=== PATIENT | male | born 1980 | race Caucasian/White ===

== ENCOUNTER 2018-11-26 05:43 | Emergency (ER) | payer MEDICAID ==
[2018-11-26] MEDS ORDERED: 0.9 % SODIUM CHLORIDE 1,000 ML BAG IV ONE (06:12)
[2018-11-26] MEDS ORDERED: ONDANSETRON HCL IV 4 MG/2 ML VIAL IV ONE (06:12)
--- NOTE | 2018-11-26 06:17 | Emergency Department Record ---
History of Present Illness - General Chief complaint: Nausea, Vomiting, Diarrhea Stated complaint: NAUSEA/VOMITING Time Seen by Provider: 11/26/18 06:07 Source: Patient, RN notes reviewed Mode of Arrival: Ambulatory - History of Present Illness Initial comments: 4 days of nausea and vomiting and diarrhea for 4 days and PMH asthma ,anxiety and GERD and primary is Dr. roa in [place]. patient ran out lorazepam 2 days ago. MD complaint: Diarrhea, Nausea, Vomiting Onset/Timin -: Days(s) Description of Vomiting: Watery Associated Abdominal Pain: Yes Location: LLQ, RLQ Severity: Moderate Severity scale (1-10): 4 Quality: Aching, Cramping Consistency: Intermittent Improves with: Vomiting Worsens with: Eating - Related Data Home Medications Medication Instructions Recorded Confirmed Last Taken Escitalopram Oxalate [Lexapro] 10 mg PO DAILY 11/26/18 11/26/18 Unknown Lorazepam [Ativan] 0.5 mg PO BID PRN 11/26/18 11/26/18 Unknown Allergies Allergy/AdvReac Type Severity Reaction Status Date / Time morphine AdvReac BEHAVIORAL Verified 11/06/15 14:04 CHANGES Travel Screening - Travel/Exposure Within Last 30 Days Have you traveled within the last 30 days?: No - Travel/Exposure Within Last Year Have you traveled outside the [place] in the last year?: No - Additonal Travel Details Have you been exposed to anyone with a communicable illness?: No - Travel Symptoms Symptom Screening: None Review of Systems Reviewed: No additional complaints except as noted below Constitutional: Reports: As per HPI. Denies: Chills, Fever, Malaise, Night sweats, Weakness, Weight change Eyes: Reports: As per HPI. Denies: Eye discharge, Eye pain, Photophobia, Vision change ENT: Reports: As per HPI. Denies: Congestion, Dental pain, Ear pain, Epistaxis, Hearing loss, Throat pain Respiratory: Reports: As per HPI. Denies: Cough, Dyspnea, Hemoptysis, Stridor, Wheezes Cardiovascular: Reports: As per HPI. Denies: Arrhythmia, Chest pain, Dyspnea on exertion, Edema, Murmurs, Orthopnea, Palpitations, Paroxysmal nocturnal dyspnea, Rheumatic Fever, Syncope Endocrine: Reports: As per HPI. Denies: Fatigue, Heat or cold intolerance, Polydipsia, Polyuria Gastrointestinal: Reports: As per HPI, Nausea, Vomiting. Denies: Abdominal pain, Constipation, Diarrhea, Hematemesis, Hematochezia, Melena Genitourinary: Reports: As per HPI. Denies: Dysuria, Frequency, Hematuria, I ncontinence, Retention, Testicular pain, Testicular mass, Urgency Musculoskeletal: Reports: As per HPI. Denies: Arthralgia, Back pain, Gout, Joint swelling, Myalgia, Neck pain Skin: Reports: As per HPI. Denies: Bruising, Change in color, Change in hair/nails, Lesions, Pruritus, Rash Neurological: Reports: As per HPI, Other (tinitus). Denies: Abnormal gait, Confusion, Headache, Numbness, Paresthesias, Seizure, Tingling, Tremors, Vertigo, Weakness Psychiatric: Reports: As per HPI. Denies: Anxiety, Auditory hallucinations, Depression, Homicidal thoughts, Suicidal thoughts, Visual hallucinations Hematological/Lymphatic: Reports: As per HPI. Denies: Anemia, Blood Clots, Easy bleeding, Easy bruising, Swollen glands Past Medical History - SOCIAL HISTORY Smoking Status: Former smoker Alcohol Use: Rare Drug Use: None - RESPIRATORY Hx Respiratory Disorders: Yes Hx Asthma: Yes - CARDIOVASCULAR Hx Cardio Disorders: No - NEURO Hx Neuro Disorders: No - GI Hx GI Disorders: No - Hx Genitourinary Disorders: No - ENDOCRINE Hx Endocrine Disorders: No - MUSCULOSKELETAL Hx Musculoskeletal Disorders: No - PSYCH Hx Psych Problems: Yes Hx Anxiety: Yes Hx Depression: Yes - HEMATOLOGY/ONCOLOGY Hx Hematology/Oncology Disorders: No Family Medical History Any Significant Family History?: No Physical Exam - General General Appearance: Alert, Oriented x3, Cooperative, No acute distress - Head Head exam: Normal inspection - Eye Eye exam: Normal appearance, PERRL Pupils: Normal accommodation - ENT ENT exam: Normal exam, Mucous membranes moist, Normal external ear exam, Normal orophraynx, TM's normal bilaterally Ear exam: Normal external inspection. negative: External canal tenderness Nasal Exam: Normal inspection. negative: Discharge, Sinus tenderness Mouth exam: Normal external inspection, Tongue normal Teeth exam: Normal inspection. negative: Dental caries Throat exam: Normal inspection. negative: Tonsillar erythema, Tonsillar exudate - Neck Neck exam: Normal inspection, Full ROM. negative: Tenderness - Respiratory Respiratory exam: Normal lung sounds bilaterally. negative: Respiratory distress - Cardiovascular Cardiovascular Exam: Regular rate, Normal rhythm, Normal heart sounds - GI/Abdominal GI/Abdominal exam: Soft, Normal bowel sounds. negative: Tenderness - Rectal Rectal exam: Deferred - exam: Deferred - Extremities Extremities exam: Normal inspection, Full ROM, Normal capillary refill. negative: Tenderness - Back Back exam: Reports: Normal inspection, Full ROM. Denies: Muscle spasm, Rash noted, Tenderness - Neurological Neurological exam: Alert, Normal gait, Oriented X3, Reflexes normal - Psychiatric Psychiatric exam: Normal affect, Normal mood - Skin Skin exam: Dry, Intact, Normal color, Warm Course Vital Signs 11/26/18 05:48 Temperature 97.9 F Pulse Rate [ 125 H Pulse Ox Probe] Respiratory 28 H Rate Blood Pressure 155/103 [Left Arm] Pulse Ox 99 - Reevaluation(s) Reevaluation #1: patient is feeling better 11/26/18 07:06 Medical Decision Making - Data Complexity MDM Data: Labs Ordered and/or Reviewed (potassium 3.3), X-Ray Ordered and/or Reviewed (ct head negative) - Lab Data Result diagrams: 11/26/18 06:04 11/26/18 06:04 Disposition Clinical Impression: Anxiety, Hypokalemia, Viral syndrome Tinnitus Qualifiers: Laterality: unspecified laterality Qualified Code(s): H93.19 - Tinnitus, unspecified ear Vomiting Qualifiers: Vomiting type: unspecified Vomiting Intractability: non-intractable Nausea presence: with nausea Qualified Code(s): R11.2 - Nausea with vomiting, unspecified Disposition: Home, Self-Care Condition: (1) Good Instructions: Acute Nausea and Vomiting (ED) Additional Instructions: follow up with family DR in 3 days Forms: Patient Portal Access Time of Disposition: 07:02 Quality - Quality Measures Quality Measures: N/A - Blood Pressure Screening Does Patient Have Any of the Following: No Blood Pressure Classification: Hypertensive Reading Systolic Measurement: 136 Diastolic Measurement: 95 Screening for High Blood Pressure: < Pre-Hypertensive BP, F/U Documented > [G8950] Pre-Hypertensive Follow-up Interventions: Referral to alternative/primary care provider.
[2018-11-26] MEDS ORDERED: LORAZEPAM 2 MG/ML VIAL IV ONE (06:18)
[2018-11-26 06:23] LABS: ABSOLUTE NEUTROPHIL COUNT 4.45; HEMATOCRIT 46.8 % (42.0-52.0); HEMOGLOBIN 16.1 gm/dl (14.0-18.0); MEAN CORPUSCULAR HEMOGLOBIN 32.3 pg (27-33); MEAN CORPUSCULAR HGB CONC 34.4 g/dl (32-36); MEAN PLATELET VOLUME 10.8 fl (7.4-10.4); PLATELET COUNT 228 K/uL (130-400); RED BLOOD COUNT 4.98 M/uL (4.40-5.70); WHITE BLOOD COUNT W/O DIFF 7.5 K/uL (4.2-12.2)
[2018-11-26 06:34] LABS: BLOOD UREA NITROGEN 9 mg/dL (6-20); CREATININE 0.9 mg/dL (0.7-1.2); EST GLOMERULAR FILTRATION RATE > 60 mL/min
[2018-11-26 06:35] LABS: LIPASE 41 U/L (13-60)
[2018-11-26 06:37] LABS: GLUCOSE,RANDOM 101 mg/dL (74-109)
[2018-11-26] MEDS ORDERED: POTASSIUM CHLORIDE 10 MEQ TAB PO ONE (06:43)
--- NOTE | 2018-11-29 19:59 | CT SCAN REPORT ---
EXAM: CT SCAN HEAD WO CONTRAST HISTORY: RINGING IN BOTH EARS FOR FOUR DAYS. TECHNIQUE: Axial CT scan of the head performed without IV contrast. COMPARISON: None. FINDINGS: No definite intracranial hemorrhage identified. No focal mass effect or midline shift evident. Mild generalized atrophy. No definite acute infarct or intracranial mass lesion seen. No depressed calvarial fracture evident. IMPRESSION: EMERGENCY NONCONTRAST HEAD CT APPEARS ESSENTIALLY NEGATIVE NO DEFINITE ACUTE INTRACRANIAL HEMORRHAGE OR FOCAL MASS EFFECT IDENTIFIED. JOB NUMBER: [id number] MTDD
== END 2018-11-26 07:16 | disposition home or self-care (01) ==
LOC: ER 05:43
DX: E87.6 Hypokalemia (principal); B34.9 Viral infection, unspecified; H93.19 Tinnitus, unspecified ear; R11.2 Nausea with vomiting, unspecified; R19.7 Diarrhea, unspecified; R10.84 Generalized abdominal pain; Z87.891 Personal history of nicotine dependence
CPT/HCPCS: 99284 ×2; 96374; 96375; 83690; 80048; 85027; 70450; J2405; J2060; J7030

== ENCOUNTER 2018-12-12 13:34 | Emergency (ER) | payer MEDICAID ==
--- NOTE | 2018-12-12 14:00 | Emergency Department Record ---
History of Present Illness - General Chief complaint: Vomiting blood Stated complaint: vomiting blood,vertigo Time Seen by Provider: 12/12/18 13:47 Source: Patient, Family Mode of Arrival: Ambulatory Limitations: No limitations - History of Present Illness Initial comments: The patient is here due to not feeling well for 3 weeks. He had an abrupt onset of vertigo when a car alarm went off when he was working on a car under the [place]. It caused the acute onset of a spinning sensation and vertigo which he mainly has when he closes his eyes. The patient has been intermittently vomiting at times over the last 3 weeks and did have some blood streaking this AM but that has gone now. He denies any significant AP, any SOLOMON, CP, SOB or fevers. The patient was here in the ER for this issues 2 weeks ago and had a neg head CT. He also was recently seen at [facility] and states nothing was done. The patient has not seen his PCP for this as directed. MD complaint: Other Onset/Timin -: Week(s) Radiation: LUQ, RUQ, LLQ, RLQ, Other Severity scale (1-10): 10 Quality: Cramping Consistency: Constant Improves with: None Worsens with: None Context: Other Associated Symptoms: Nausea, Vomiting Treatments Prior to Arrival: None - Related Data Allergies Allergy/AdvReac Type Severity Reaction Status Date / Time morphine AdvReac BEHAVIORAL Verified 11/06/15 14:04 CHANGES Travel Screening - Travel/Exposure Within Last 30 Days Have you traveled within the last 30 days?: No Review of Systems Constitutional: Denies: Chills, Fever Eyes: Denies: Eye discharge ENT: Denies: Congestion Respiratory: Denies: Cough, Dyspnea Cardiovascular: Denies: Arrhythmia, Chest pain Past Medical History - SOCIAL HISTORY Smoking Status: Former smoker - RESPIRATORY Hx Respiratory Disorders: Yes Hx Asthma: Yes - CARDIOVASCULAR Hx Cardio Disorders: No - NEURO Hx Neuro Disorders: No - GI Hx GI Disorders: No - Hx Genitourinary Disorders: No - ENDOCRINE Hx Endocrine Disorders: No - MUSCULOSKELETAL Hx Musculoskeletal Disorders: No - PSYCH Hx Psych Problems: Yes Hx Anxiety: Yes Hx Depression: Yes - HEMATOLOGY/ONCOLOGY Hx Hematology/Oncology Disorders: No Family Medical History Any Significant Family History?: No Physical Exam - General General Appearance: Alert, Oriented x3, Cooperative, No acute distress - Head Head exam: Atraumatic, Normocephalic, Normal inspection - Eye Eye exam: Normal appearance, PERRL, EOMI, Nystagmus. negative: Conjunctival injection - ENT ENT exam: TM's normal bilaterally Throat exam: Normal inspection. negative: Tonsillar erythema, Tonsillar exudate - Neck Neck exam: Normal inspection, Full ROM. negative: Tenderness - Respiratory Respiratory exam: Normal lung sounds bilaterally. negative: Respiratory distress - Cardiovascular Cardiovascular Exam: Regular rate, Normal rhythm, Normal heart sounds - GI/Abdominal GI/Abdominal exam: Soft, Normal bowel sounds. negative: Tenderness - Extremities Extremities exam: Normal inspection, Full ROM, Normal capillary refill. negative: Tenderness - Back Back exam: Reports: Normal inspection - Neurological Neurological exam: Alert, Normal gait, Oriented X3. negative: Abnormal gait, Altered, Motor sensory deficit - Psychiatric Psychiatric exam: Anxious Course Vital Signs 12/12/18 13:41 Temperature 97.7 F Pulse Rate 133 H Respiratory 20 Rate Blood Pressure 119/101 Pulse Ox 95 - Reevaluation(s) Reevaluation #1: The patient is doing a lot better at this time. His dizziness, vertigo, nausea and vomiting have improved. Due to the extent of these issues and the fact he has been to the ER 3 times for it I did recommend transfer to a larger hospital for further treatment and the patient states he would like to go to [facility]. 12/12/18 14:47 Reevaluation #2: I did discuss the case with Dr. Faulkner at [facility] and she does accept the pa tient in transfer. 12/12/18 15:24 Medical Decision Making - Lab Data Result diagrams: 12/12/18 14:00 12/12/18 14:00 Disposition Disposition: Transfer Clinical Impression: Vomiting Qualifiers: Vomiting type: unspecified Vomiting Intractability: non-intractable Nausea presence: with nausea Qualified Code(s): R11.2 - Nausea with vomiting, unspecified Disposition: Acute Care Hospital Transfer Transfer To: [facility] Reason For Transfer: Neurology Accepting Physician: Kaushik Time Discussed w/Accepting Physician: 15:25 Condition: (2) Stable Forms: Patient Portal Access Time of Disposition: 15:25 Quality - Quality Measures Quality Measures: N/A - Blood Pressure Screening View Details: Yes Does Patient Have Any of the Following: No Blood Pressure Classification: Hypertensive Reading Systolic Measurement: 119 Diastolic Measurement: 101 Screening for High Blood Pressure: < First Hypertensive BP, F/U Documented > [G8950] First Hypertensive Follow-up Interventions: Referral to alternative/primary care provider.
[2018-12-12] MEDS: LORAZEPAM 2 MG/ML VIAL IV ONE ×2 (14:02→15:37)
[2018-12-12] MEDS: 0.9 % SODIUM CHLORIDE 1,000 ML BAG IV ONE (14:02)
[2018-12-12] MEDS: ONDANSETRON HCL IV 4 MG/2 ML VIAL IV ONE (14:02)
[2018-12-12 14:06] LABS: HEMATOCRIT 50.3 % (42.0-52.0); HEMOGLOBIN 17.3 gm/dl (14.0-18.0); MEAN CELL VOLUME 94.4 fl (81-97); MEAN CORPUSCULAR HEMOGLOBIN 32.5 pg (27-33); MEAN CORPUSCULAR HGB CONC 34.4 g/dl (32-36); MEAN PLATELET VOLUME 9.9 fl (7.4-10.4); PLATELET COUNT 291 K/uL (130-400); RED BLOOD COUNT 5.33 M/uL (4.40-5.70); RED CELL DISTRIBUTION WIDTH 14.6 % (11.5-14.5); WHITE BLOOD COUNT W/O DIFF 12.8 K/uL (4.2-12.2)
[2018-12-12 14:17] LABS: BLOOD UREA NITROGEN 10 mg/dL (6-20); CREATININE 1.1 mg/dL (0.7-1.2); EST GLOMERULAR FILTRATION RATE > 60 mL/min
[2018-12-12 14:18] LABS: TOTAL PROTEIN 8.1 g/dL (6.6-8.7)
[2018-12-12 14:19] LABS: GLUCOSE,RANDOM 125 mg/dL (74-109)
[2018-12-12 14:22] LABS: ALBUMIN 4.9 g/dL (4.0-5.0); ALKALINE PHOSPHATASE 126 U/L (40-129); ALT/SGPT 126 U/L (<41); AST/SGOT 128 U/L (10.0-50.0); BILIRUBIN,DIRECT 0.4 mg/dL (0-0.3)
[2018-12-12] MEDS: PROMETHAZINE HCL 12.5 MG in 0.9 % SODIUM CHLORIDE 100ML 100 ML IVPB ONE (14:30)
[2018-12-12] MEDS: ONDANSETRON HCL IV 4 MG/2 ML VIAL IVP ONE (15:37)
== END 2018-12-12 17:12 | disposition short-term general hospital (02) ==
LOC: ER 13:34
DX: K92.0 Hematemesis (principal); R42 Dizziness and giddiness; R11.2 Nausea with vomiting, unspecified
CPT/HCPCS: 80048; 80076; 85027; 96365; 96375; 96376; 99285; J2405; J2550; J7030

== ENCOUNTER 2019-06-24 03:49 | Emergency (ER) | payer MEDICAID ==
--- NOTE | 2019-06-24 04:01 | Emergency Department Record ---
History of Present Illness - General Chief Complaint: Abdominal Pain Stated Complaint: CONSTIPATION Time Seen by Provider: 06/24/19 03:52 Source: Patient Mode of Arrival: Ambulatory Limitations: No limitations - History of Present Illness Initial Comments: 39 yo male presents to ED for evaluation of constipation symptoms following hip replacement surgery 5 days ago. Patient reports taking Oxycodone for his pain symptoms post-operatively, started an oral stool softener yesterday without improvement in his symptoms. Patient does report intermittent nausea, vomiting x 1 that the patient reports is from anxiety about his constipation symptoms. MD Complaint: Other Onset/Timin -: Days(s) Radiation: None Migration to: No migration Severity: Moderate Quality: Cramping Consistency: Constant Improves With: Nothing Worsens With: Nothing Associated Symptoms: Denies other symptoms - Related Data Home Medications Medication Instructions Recorded Confirmed Last Taken Aspirin 325 mg PO 06/24/19 06/23/19 Docusate Sodium [Colace] 100 mg PO BID 06/24/19 06/24/19 06/23/19 Hydrocodone/Acetaminophen [[place] 5 mg PO 06/24/19 06/23/19 5-325 Tablet] Ibuprofen 800 mg PO 06/24/19 06/23/19 Oxycodone HCl/Acetaminophen 5 mg PO 06/24/19 06/23/19 [Oxycodone/Acetaminophen 5mg/325mg] Prochlorperazine Maleate 10 mg PO 06/24/19 06/23/19 Previous Rx's Medication Instructions Recorded Polyethylene Glycol 3350 [Miralax] 1 packet PO DAILY #15 packet 06/24/19 Allergies Allergy/AdvReac Type Severity Reaction Status Date / Time morphine AdvReac BEHAVIORAL Verified 11/06/15 14:04 CHANGES Review of Systems Constitutional: Denies: Chills, Fever, Malaise, Night sweats Eyes: Denies: Eye discharge, Eye pain ENT: Denies: Congestion, Ear pain, Epistaxis Respiratory: Denies: Cough, Dyspnea Cardiovascular: Denies: Chest pain, Dyspnea on exertion Endocrine: Denies: Fatigue, Heat or cold intolerance Gastrointestinal: Reports: Abdominal pain, Constipation. Denies: Nausea, Vomiting Genitourinary: Denies: Incontinence, Retention Musculoskeletal: Denies: Arthralgia, Back pain Skin: Denies: Bruising, Change in color Neurological: Denies: Abnormal gait, Confusion, Headache, Seizure Psychiatric: Denies: Anxiety Hematological/Lymphatic: Denies: Anemia, Blood Clots Past Medical History - SOCIAL HISTORY Smoking Status: Former smoker - RESPIRATORY Hx Respiratory Disorders: Yes Hx Asthma: Yes - CARDIOVASCULAR Hx Cardio Disorders: No - NEURO Hx Neuro Disorders: No - GI Hx GI Disorders: No - Hx Genitourinary Disorders: No - ENDOCRINE Hx Endocrine Disorders: No - MUSCULOSKELETAL Hx Musculoskeletal Disorders: No - PSYCH Hx Psych Problems: Yes Hx Anxiety: Yes Hx Depression: Yes - HEMATOLOGY/ONCOLOGY Hx Hematology/Oncology Disorders: No Physical Exam - General General Appearance: Alert, Oriented x3, Cooperative, Anxious Limitations: No limitations - Head Head exam: Atraumatic, Normocephalic, Normal inspection Head exam detail: negative: Abrasion, Contusion, Ramírez's sign, General tenderness, Hematoma, Laceration - Eye Eye exam: Normal appearance. negative: Conjunctival injection, Periorbital swelling, Periorbital tenderness, Scleral icterus - ENT Ear exam: negative: Auricular hematoma, Auricular trauma Nasal Exam: negative: Active bleeding, Discharge, Dried blood, Foreign body Mouth exam: negative: Drooling, Laceration, Muffled voice, Tongue elevation - Neck Neck exam: Normal inspection. negative: Meningismus, Tenderness - Respiratory Respiratory exam: Normal lung sounds bilaterally. negative: Rales, Respiratory distress, Rhonchi, Stridor - Cardiovascular Cardiovascular Exam: Regular rate, Normal rhythm, Normal heart sounds - GI/Abdominal GI/Abdominal exam: Soft. negative: Rebound, Rigid, Tenderness - Rectal Rectal exam: Deferred - exam: Deferred - Extremities Extremities exam: Normal inspection. negative: Pedal edema, Tenderness - Back Back exam: Denies: CVA tenderness (R), CVA tenderness (L) - Neurological Neurological exam: Alert, Normal gait, Oriented X3 - Psychiatric Psychiatric exam: Anxious - Skin Skin exam: Normal color. negative: Abrasion Type of lesion: negative: abrasion Course Vital Signs 06/24/19 03:50 Temperature 98.2 F Pulse Rate [ 109 H Pulse Ox Probe] Respiratory 20 Rate Blood Pressure 102/76 [Left Arm] Pulse Ox 96 - Reevaluation(s) Reevaluation #1: 06/24/19 04:46 Patient was reassessed, reports improvement in his constipation symptoms following bowel movement here in the ED. Patient was counseled to continue a stool softener daily when taking opiate pain medications. Patient appears stable for discharge at this time. Disposition Disposition: Discharge Clinical Impression: Constipation due to opioid therapy Disposition: Home, Self-Care Condition: (2) Stable Instructions: Constipation (ED) Additional Instructions: Return to ED if your symptoms worsen or if you have any concerns. Miralax as directed. Follow-up with your family doctor in 3-5 days as directed. Prescriptions: Polyethylene Glycol 3350 [Miralax] 1 packet PO DAILY #15 packet Forms: Patient Portal Access Time of Disposition: 04:48 Quality - Quality Measures Quality Measures: N/A - Blood Pressure Screening Does Patient Have Any of the Following: No Blood Pressure Classification: Normal BP Reading Systolic Measurement: 102 Diastolic Measurement: 76 Screening for High Blood Pressure: < Normal BP, F/U Not Required > [G8783]
[2019-06-24] MEDS: METHYLNALTREXONE BROMIDE (RELISTOR) 12MG/0.6ML SYRINGE SQ ONE (04:09)
== END 2019-06-24 04:54 | disposition home or self-care (01) ==
LOC: ER 03:49
DX: K59.03 Drug induced constipation (principal); T40.2X5A Adverse effect of other opioids, initial encounter; Z96.649 Presence of unspecified artificial hip joint; Z87.891 Personal history of nicotine dependence
CPT/HCPCS: 96372; 99283; J2212